=== PATIENT | female | born 1965 | race Hispanic/Latino ===

== ENCOUNTER 2020-05-02 20:06 | Emergency (ER) | payer OTHER ==
[~2020-05-02] VITALS: Ht 165.1 cm; Wt 64.9 kg
[2020-05-02] MEDS ORDERED: ONDANSETRON HCL INJ 2MG/ML 2ML 2 MG/ML VIAL IV STA (21:08)
[2020-05-02] MEDS ORDERED: SODIUM CHLORIDE 0.9% 1000ML 1,000 ML IV SCH (21:15)
[2020-05-02] MEDS ORDERED: ONDANSETRON HCL INJ 2MG/ML 2ML 2 MG/ML VIAL ONE (21:41)
[2020-05-02] MEDS ORDERED: IBUPROFEN 600 MG TAB ONE (21:41)
[2020-05-02] MEDS ORDERED: SODIUM CHLORIDE 0.9% 1000ML 1,000 ML ONE (21:41)
[2020-05-02] MEDS ORDERED: IOPAMIDOL 370 MG/ML 200 ML INFUS..BTL INJ ONE (22:33)
[2020-05-02] MEDS ORDERED: SODIUM CHLORIDE 0.9% 50ML 50 ML ONE (22:33)
[2020-05-02] MEDS ORDERED: DICYCLOMINE HCL 10 MG CAP ONE (23:26)
[2020-05-02] MEDS ORDERED: CIPROFLOXACIN 400 MG/D5W 200ML 200 ML IV ONE (23:30)
[2020-05-02] MEDS ORDERED: METRONIDAZOLE 500MG/NS 100ML 100 ML IV ONE (23:30)
[2020-05-02] MEDS ORDERED: DICYCLOMINE HCL 20 MG TAB PO ONE (23:30)
[2020-05-03] MEDS ORDERED: CIPRO500 MG PO (01:12)
[2020-05-03] MEDS ORDERED: METRONIDAZOLE500 MG PO (01:14)
[2020-05-03] MEDS ORDERED: DICYCLOMINE HCL20 MG PO (01:15)
[2020-05-03] MEDS ORDERED: ONDANSETRON ODT8 MG PO (01:17)
== END 2020-05-03 01:32 | disposition home or self-care (01) ==
LOC: FSED 20:20
DX: R19.7 Diarrhea, unspecified (principal); A08.4 Viral intestinal infection, unspecified; R10.11 Right upper quadrant pain; Z20.828 Contact with and (suspected) exposure to other viral communicable diseases; E11.9 Type 2 diabetes mellitus without complications; E78.5 Hyperlipidemia, unspecified
CPT/HCPCS: 74177; 80053; 81003; 85025; 99284; J2405; J7030; Q9967; U0002

== ENCOUNTER 2022-08-21 20:53 | Emergency (ER) | payer OTHER ==
[~2022-08-21] VITALS: Ht 165.1 cm; Wt 64.9 kg
[~2022-08-21 20:53] MED LIST: CIPRO500 MG PO; DICYCLOMINE HCL20 MG PO; METRONIDAZOLE500 MG PO; ONDANSETRON ODT8 MG PO
[2022-08-21] MEDS ORDERED: ONDANSETRON HCL INJ 2MG/ML 2ML 2 MG/ML VIAL IV STA (21:46)
[2022-08-21 21:54] LABS: BASOPHILS % 0.4 % (0.0-1.0); EOSINOPHILS # (AUTO) 0.2 (0.0-0.4); EOSINOPHILS % 1.9 % (0.0-6.0); HEMATOCRIT 37.8 % (34.2-44.1); LYMPHOCYTES # (AUTO) 3.4 (1.0-3.2); LYMPHOCYTES % 34.9 % (18.0-39.1); MEAN CORPUSCULAR HEMOGLOBIN 29.3 pg (28-32); MEAN CORPUSCULAR HGB CONC 31.7 g/dL (31-35); MEAN CORPUSCULAR VOLUME 92.4 fL (81-99); MONOCYTES # (AUTO) 0.6 (0.2-0.8); MONOCYTES % 6.3 % (4.4-11.3); NEUTROPHILS # (AUTO) 5.5 (2.1-6.9); NEUTROPHILS % 55.9 % (38.7-80.0); PLATELET COUNT 324 x10e3/uL (140-360); RED BLOOD COUNT 4.09 x10e6/uL (3.6-5.1); RED CELL DISTRIBUTION WIDTH 12.9 % (11.7-14.4)
[2022-08-21 22:00] LABS: CLARITY,URINE CLEAR (CLEAR); COLOR,URINE YELLOW (YELLOW); KETONES,URINE NEGATIVE (NEGATIVE); LEUKOCYTE ESTERASE ,URINE TRACE (NEGATIVE); NITRITE,URINE NEGATIVE (NEGATIVE); PROTEIN,URINE DIPSTICK NEGATIVE (NEGATIVE); URINE UROBILINOGEN 0.2 mg/dL (0.2 - 1)
[2022-08-21] MEDS ORDERED: SODIUM CHLORIDE 0.9% 1000ML 1,000 ML IV SCH (22:00)
[2022-08-21] MEDS ORDERED: Morphine 4mg INJECTION 4 MG/ML INJ IV ONE (22:00)
[2022-08-21 22:10] LABS: ALANINE AMINOTRANSFERASE 43 IU/L (0-55); ALBUMIN 4.4 g/dL (3.5-5.0); ALBUMIN/GLOBULIN RATIO 1.4 (0.8-2.0); ALKALINE PHOSPHATASE 95 IU/L (40-150); ANION GAP 16.5 mmol/L (8-16); BLOOD UREA NITROGEN 10 mg/dL (7-26); BUN/CREATININE RATIO 14 (6-25); CALCIUM 9.9 mg/dL (8.4-10.2); CARBON DIOXIDE 23 mmol/L (22-29); CHLORIDE 106 mmol/L (98-107); CREATINE KINASE 94 IU/L (29-168); CREATININE, SERUM 0.69 mg/dL (0.57-1.11); GLUCOSE 109 mg/dL (74-118); POTASSIUM 4.5 mmol/L (3.5-5.1); SODIUM 141 mmol/L (136-145)
[2022-08-21 22:10] LABS: BACTERIA,URINE RARE /HPF; EPITHELIAL CELLS,URINE RARE /LPF; RBC,URINE 0-5 /HPF (0-5)
[2022-08-21] MEDS ORDERED: SODIUM CHLORIDE 0.9% 1000ML 1,000 ML IV ONE (22:15)
[2022-08-21] MEDS ORDERED: IOPAMIDOL 370 MG/ML 100 ML INFUS..BTL INJ ONE (23:30)
[2022-08-21] MEDS ORDERED: LACTULOSE20 GM/30 M PO (23:57)
[2022-08-22 00:17] VITALS: BP 116/75
== END 2022-08-22 00:19 | disposition home or self-care (01) ==
LOC: ER 21:00
DX: R10.11 Right upper quadrant pain (principal); K59.00 Constipation, unspecified
CPT/HCPCS: 36415; 74177; 80053; 81001; 82550; 82553; 83690; 84484; 85025; 93005; 99284; C9113; J2270; J2405; J7030; Q9967